=== PATIENT | male | born 1960 | race Caucasian/White ===

== ENCOUNTER 2017-01-03 02:59 | Inpatient (IN) | payer OTHER ==
[2017-01-03] VITALS (10 sets, daily range): BP systolic 114–167; BP diastolic 68–94; PULSE 87–114; RESP 16–18; TEMP 97.8–98.4; O2SAT 95–99
[~2017-01-03] VITALS: Ht 182.9 cm; Wt 70.0 kg
[2017-01-03] MEDS ORDERED: HYDR25TA5 PO (03:13)
[2017-01-03] MEDS ORDERED: LISI-515 PO (03:13)
[2017-01-03] MEDS ORDERED: PRED5TAB PO (03:13)
[2017-01-03] MEDS ORDERED: MORPHINE SULFATE 4 MG/ML INJ IV PUSH ONE (03:45)
[2017-01-03] MEDS ORDERED: ONDANSETRON HCL 4 MG/2 ML VIAL IV PUSH ONE (03:45)
[2017-01-03] MEDS ORDERED: AMPICILLIN-SULBACTAM INJ 3 GM in SODIUM CHLORIDE 0.9% INJ 100 ML IV ONE (03:45)
[2017-01-03] MEDS ORDERED: SODIUM CHLOR 0.9% 1000 ML INJ 1,000 ML IV ONE (03:45)
--- NOTE | 2017-01-03 03:46 | PD ---
HPI Chief Complaint: Fall Time Seen by Provider: 03:33 Travel History International Travel<30 days: No Contact w/Intl Traveler<30days: No Traveled to known affect area: No History of Present Illness HPI The patient is a 56-year-old male who presents emergency department via EMS after a fall. The patient was placed under a [place] act in the field by police after the patient was noted to be intoxicated and fell down. The patient does admit to drinking beers earlier tonight, is unable to quantify the amount of alcohol he consumed. The patient states he fell forward landing on his face and his shoulders bilaterally, does complain of mild headache and facial pain. He denies any loss of consciousness. The patient states his last tetanus shot was 3 years ago. He denies any neck pain, does have a history of chronic back pain. He denies any difficulty using the upper or lower extremities. The patient's symptoms are moderate, exacerbated after falling, and there are no current alleviating factors. PFSH Past Medical History Arthritis: Yes Diminished Hearing: No Hypertension: Yes Musculoskeletal: Yes (CHRONIC BACK PAIN) Influenza Vaccination: No Past Surgical History Other Surgery: Yes (LLE, HERNIA REPAIR) Social History Alcohol Use: Yes (DAILY) Tobacco Use: Yes (1/2 PPD) Substance Use: Yes (MARIJUIANA) Allergies-Medications (Allergen,Severity, Reaction): Coded Allergies: No Known Allergies (Unverified , 01/03/17) Reported Meds & Prescriptions Reported Meds & Active Scripts Active Reported Prednisone 5 Mg Tab 5 Mg PO DAILY Hydrochlorothiazide 25 Mg Tab 25 Mg PO DAILY Lisinopril 20 Mg Tab 20 Mg PO DAILY Review of Systems Except as stated in HPI: all other systems reviewed are Neg Eyes: No: Blurred Vision HENT: Positive: Headaches, Other (as noted in history of present illness), No : Neck Pain Cardiovascular: No: Chest Pain or Discomfort, Syncope Respiratory: No: Shortness of Breath Gastrointestinal: No: Nausea, Vomiting, Abdominal Pain Musculoskeletal: Positive: Other (multiple abrasions) Skin: Positive Other (multiple abrasions) Neurologic: Positive: Headache Psychiatric: Positive: Substance Abuse (alcohol consumption tonight) Physical Exam Narrative GENERAL: Awake, alert, 56-year-old male who appears his stated age and is in no acute respiratory distress. SKIN: Focused skin assessment warm/dry. Patient has abrasions with lacerations of the nasal bridge, the upper lip, the shoulders bilaterally, and the upper extremities bilaterally. HEAD: Facial trauma noted with multiple abrasions and lacerations to the nose as well as the upper lip.. EYES: Pupils equal and round. Pupils are 3 mm bilateral and reactive. EOMs are intact. Patient is able to see fingers at a distance of 2 feet without difficulty. ENT: No nasal bleeding or discharge. Breath smells of alcohol. NECK: Trachea midline. No JVD. Cervical collar in place, no tenderness over the midline of the cervical vertebrae. CARDIOVASCULAR: Regular rate and rhythm. No murmur appreciated. RESPIRATORY: No accessory muscle use. Clear to auscultation. Breath sounds equal bilaterally. GASTROINTESTINAL: Abdomen soft, non-tender, nondistended. MUSCULOSKELETAL: No obvious deformities. No clubbing. No cyanosis. No edema. Moves all 4 extremities without difficulty. Full range of motion of the upper extremities. NEUROLOGICAL: Awake and alert. No obvious cranial nerve deficits. Motor grossly within normal limits. Normal speech. Alert and oriented to person, place, month, year, and driver operator. Back: No tenderness over the thoracic or lumbar vertebrae. PSYCHIATRIC: Appropriate mood and affect; insight and judgment normal. Data Data Last Documented VS Vital Signs Date Time Temp Pulse Resp B/P Pulse Ox O2 Delivery O2 Flow Rate FiO2 01/03/17 04:10 114 18 126/73 98 Room Air 01/03/17 03:[address] Cerv Spine W/O Contrast (01/03/17 ) Ct Brain W/O Iv Contrast(Rout) (01/03/17 ) Ct Facial Bones W/O Iv Cont (01/03/17 ) Basic Metabolic Panel (Bmp) (01/03/17 03:38) Alcohol (Ethanol) (01/03/17 03:38) Morphine Inj (Morphine Inj) (01/03/17 03:45) Ondansetron Inj (Zofran Inj) (01/03/17 03:45) Sodium Chlor 0.9% 1000 Ml Inj (Ns 1000 M (01/03/17 03:45) Ampicillin-Sulbactam Inj (Unasyn Inj) (01/03/17 03:45) Lidocaine 1% Inj (Xylocaine 1% Inj) (01/03/17 05:00) Complete Blood Count With Diff (01/03/17 04:48) Chest, Single Ap (01/03/17 ) Wrist, Limited (Ap&Lat) (01/03/17 ) Admit Order (Ed Use Only) (01/03/17 04:51) [place] J Collar (01/03/17 ) Consult Neurosurgery (01/03/17 ) Brace [place] Collar (01/03/17 ) Collar [place] (01/03/17 ) Labs Laboratory Tests Test 01/03/17 01/03/17 03:45 04:54 Sodium Level 138 MEQ/L Potassium Level 3.0 MEQ/L Chloride Level 102 MEQ/L Carbon Dioxide Level 22.4 MEQ/L Anion Gap 14 MEQ/L Blood Urea Nitrogen 19 MG/DL Creatinine 1.38 MG/DL Estimat Glomerular Filtration 53 ML/MIN Rate Random Glucose 155 MG/DL Calcium Level 8.9 MG/DL Ethyl Alcohol Level 264 MG/DL White Blood Count 12.5 TH/MM3 Red Blood Count 4.82 MIL/MM3 Hemoglobin 16.9 GM/DL Hematocrit 47.0 % Mean Corpuscular Volume 97.4 FL Mean Corpuscular Hemoglobin 35.0 PG Mean Corpuscular Hemoglobin 35.9 % Concent Red Cell Distribution Width 15.1 % Platelet Count 232 TH/MM3 Mean Platelet Volume 10.4 FL Neutrophils (%) (Auto) 88.4 % Lymphocytes (%) (Auto) 6.6 % Monocytes (%) (Auto) 4.6 % Eosinophils (%) (Auto) 0.0 % Basophils (%) (Auto) 0.4 % Neutrophils # (Auto) 11.0 TH/MM3 Lymphocytes # (Auto) 0.8 TH/MM3 Monocytes # (Auto) 0.6 TH/MM3 Eosinophils # (Auto) 0.0 TH/MM3 Basophils # (Auto) 0.0 TH/MM3 CBC Comment DIFF FINAL Differential Comment MDM Medical Decision Making Medical Screen Exam Complete: Yes Emergency Medical Condition: Yes Medical Record Reviewed: Yes Interpretation(s) Laboratory Tests Test 01/03/17 03:45 Sodium Level 138 MEQ/L Potassium Level 3.0 MEQ/L Chloride Level 102 MEQ/L Carbon Dioxide Level 22.4 MEQ/L Anion Gap 14 MEQ/L Blood Urea Nitrogen 19 MG/DL Creatinine 1.38 MG/DL Estimat Glomerular Filtration 53 ML/MIN Rate Random Glucose 155 MG/DL Calcium Level 8.9 MG/DL Ethyl Alcohol Level 264 MG/DL Last Impressions Head CT 01/03/17 0000 Signed Impressions: Service Date/Time: Tuesday, January 03, 2017 04:00 - CONCLUSION: 1. Minimally displaced nasal bone fractures. 2. No acute intracranial abnormality is identified. Anupam Mendez MD CT of the cervical spine reveals a nondisplaced fracture through the C5 lamina. There is degenerative disc disease at C5-C6. CT of the facial bones reveals minimally displaced nasal bone fracture with surrounding soft tissue swelling. Right orbital floor fracture. Chest x-rays unremarkable Left wrist x-rays unremarkable Differential Diagnosis Differential diagnosis includes mechanical fall, alcohol intoxication, closed head injury, intracranial hemorrhage, cervical fracture, facial fracture, laceration, contusion, abrasion, hematoma. Narrative Course IV was established, labs are drawn and sent, and the patient was placed on cardiac telemetry monitoring and continuous pulse oximetry monitoring. CT of the brain, facial bones, and cervical spine were ordered. The patient states his last tetanus shot was 3 years ago, therefore, the tetanus shot was not updated. The patient received morphine, Zofran, IV fluids, and Unasyn. CT the brain is unremarkable. CT the cervical spine reveals a nondisplaced fracture through the C5 lamina. CT of the facial bones reveals a right infraorbital wall fracture with herniation of contents. The patient's EOMs are intact. The patient did receive Unasyn. I discussed the patient with the on-call neurosurgeon, Dr. Wells, who agrees with a [facility]. A call was placed to the on-call trauma surgeon for admission. I discussed the patient with Dr. Matos who agrees with admission. The patient's lacerations were repaired by the mid-level provider, please refer to the procedure no. Physician Communication Physician Communication I discussed the patient with the neurosurgeon and the trauma surgeon. The patient will be admitted to the trauma service. Diagnosis Primary Impression: Cervical vertebral fracture Qualified Code: S12.491A - Other closed nondisplaced fracture of fifth cervical vertebra, initial encounter Additional Impressions: Fracture of inferior orbital wall Qualified Code: S02.31XA - Closed fracture of right orbital floor, initial encounter Nasal fracture Qualified Code: S02.2XXB - Open fracture of nasal bone, initial encounter Admitting Information Admitting Physician Requests: Admit Condition: Stable Elvis Dobbs MD Jan 03, 2017 03:46
[2017-01-03 04:28] LABS: BICARBONATE 22.4 MEQ/L (21.0-32.0)
--- NOTE | 2017-01-03 04:35 | RADRPT ---
EXAM DATE/TIME: 01/03/2017 04:00 [facility] COMPARISON: No previous studies available for comparison. INDICATIONS : Trauma. Fall. RADIATION DOSE: 56.35 CTDIvol (mGy) MEDICAL HISTORY : Hypertension. SURGICAL HISTORY : Inguinal hernia repair. ENCOUNTER: Initial ACUITY: 1 day PAIN SCALE: 5/10 LOCATION: cranial TECHNIQUE: Multiple contiguous axial images were obtained of the head. Using automated exposure control and adj ustment of the mA and/or kV according to patient size, radiation dose was kept as low as reasonably a chievable to obtain optimal diagnostic quality images. DICOM format image data is available electro nically for review and comparison. FINDINGS: CEREBRUM: The ventricles are normal. No evidence of midline shift, mass lesion, hemorrhage or acute infarction . No extra-axial fluid collections are seen. POSTERIOR FOSSA: The cerebellum and brainstem are intact. The 4th ventricle is midline. The cerebellopontine angle i s unremarkable. EXTRACRANIAL: There are minimally displaced nasal bone fractures. SKULL: The calvaria is intact. No evidence of skull fracture. CONCLUSION: 1. Minimally displaced nasal bone fractures. 2. No acute intracranial abnormality is identified. Anupam Mendez MD on January 03, 2017 at 4:32 Board Certified Radiologist. This report was verified electronically.
--- NOTE | 2017-01-03 04:39 | RADRPT ---
EXAM DATE/TIME: 01/03/2017 03:58 [facility] COMPARISON: No previous studies available for comparison. INDICATIONS : Trauma. Fall. RADIATION DOSE: 22.75 CTDIvol (mGy) MEDICAL HISTORY : Hypertension. SURGICAL HISTORY : Inguinal hernia repair. ENCOUNTER: Initial ACUITY: 1 day PAIN SCALE: 5/10 LOCATION: neck TECHNIQUE: Volumetric scanning of the cervical spine was performed. Multiplanar reconstructions in the sagittal, coronal and oblique axial planes were performed. Using automated exposure control and adjustment o f the mA and/or kV according to patient size, radiation dose was kept as low as reasonably achievable to obtain optimal diagnostic quality images. DICOM format image data is available electronically f or review and comparison. FINDINGS: There is normal sagittal spine alignment of the cervical spine. No anterolisthesis or retrolisthesis is present. The atlantoaxial relationship is within normal limits. There is no prevertebral soft tiss ue swelling present. There is a nondisplaced fracture through the lamina of C5 there is degenerative disc disease at C5-C6 with facet arthrosis at multiple levels. The visualized portions of the posterior fossa, paraspinous soft tissues, and upper lung zones demons trate no acute abnormality. CONCLUSION: 1. There is a nondisplaced fracture through the C5 lamina. 2. There is degenerative disc disease at C5-C6. Anupam Mendez MD on January 03, 2017 at 4:33 Board Certified Radiologist. This report was verified electronically.
--- NOTE | 2017-01-03 04:42 | RADRPT ---
EXAM DATE/TIME: 01/03/2017 04:01 [facility] COMPARISON: No previous studies available for comparison. INDICATIONS : Trauma. Fall. RADIATION DOSE: 26.35 CTDIvol (mGy) MEDICAL HISTORY : Hypertension. SURGICAL HISTORY : Inguinal hernia repair. ENCOUNTER: Initial ACUITY: 1 day PAIN SCORE: 5/10 LOCATION: facial TECHNIQUE: Volumetric scanning of the facial bones was performed. Using automated exposure control and adjustme nt of the mA and/or kV according to patient size, radiation dose was kept as low as reasonably achiev able to obtain optimal diagnostic quality images. DICOM format image data is available electronicall y for review and comparison. FINDINGS: ORBITS: There is a right orbital floor fracture with herniation of fat into the defect. The retroconal struc tures have a normal configuration. No radiopaque foreign bodies are seen. The lenses are normally lo cated. NASAL BONE: There are minimally displaced nasal bone fractures bilaterally with surrounding soft tissue swelling. ZYGOMATIC ARCHES: Symmetric without evidence of fracture. SINUSES: There are secretions within the right maxillary sinus. NASAL CAVITY: The nasal septum is intact and midline. The lacrimal ducts are intact. SOFT TISSUES: No radiopaque foreign bodies seen. There is nasal soft tissue swelling. INTRACRANIAL: No acute intracranial abnormality is seen. OTHER: The mandible and pterygoid plates are intact. CONCLUSION: 1. Minimally displaced nasal bone fractures with surrounding soft tissue swelling. 2. Right orbital floor fracture. Anupam Mendez MD on January 03, 2017 at 4:37 Board Certified Radiologist. This report was verified electronically.
[2017-01-03] MEDS ORDERED: LIDOCAINE HCL 1% 30 ML VIAL INFIL ONE (05:00)
[2017-01-03 05:15] LABS: BASOPHIL % 0.4 % (0.0-2.0); HEMO FLAGS DIFF FINAL; LYMPH % 6.6 % (9.0-44.0); LYMPHOCYTE # 0.8 TH/MM3 (1.0-4.8); MEAN CELL VOLUME 97.4 FL (80.0-100.0); MEAN CORPUSCULAR HGB CONC 35.9 % (32.0-36.0); MONO % 4.6 % (0.0-8.0); NEUT % 88.4 % (16.0-70.0); PLATELET COUNT 232 TH/MM3 (150-450); RED BLOOD COUNT 4.82 MIL/MM3 (4.50-5.90); RED CELL DISTRIBUTION WIDTH 15.1 % (11.6-17.2); WHITE BLOOD COUNT 12.5 TH/MM3 (4.0-11.0)
[2017-01-03] MEDS ORDERED: SODIUM CHLORIDE 0.9% FLUSH 10 ML FLUSH IVF PRN (05:30)
[2017-01-03] MEDS ORDERED: NS + KCL 20 MEQ INJ 1,000 ML IV SCH (05:30)
[2017-01-03] MEDS ORDERED: ONDANSETRON HCL 4 MG/2 ML VIAL IV PRN ×2 (05:30→07:45)
[2017-01-03] MEDS ORDERED: ACETAMINOPHEN 650 MG SUPP RECTAL PRN (05:30)
[2017-01-03] MEDS ORDERED: ACETAMINOPHEN 325 MG TAB PO PRN (05:30)
--- NOTE | 2017-01-03 05:46 | RADRPT ---
EXAM DATE/TIME: 01/03/2017 05:00 [facility] COMPARISON: No previous studies available for comparison. INDICATIONS : Shortness of breath. MEDICAL HISTORY : Hypertension. SURGICAL HISTORY : Inguinal hernia repair. ENCOUNTER: Initial ACUITY: 1 day PAIN SCORE: 2/10 LOCATION: Bilateral chest FINDINGS: Portable AP view of the chest demonstrates a normal-sized cardiac silhouette. No effusion, consolidat ion, or pneumothorax is visualized. The bones and soft tissues demonstrate no acute abnormality. Ther e is symmetric biapical scar. CONCLUSION: No acute cardiopulmonary abnormality is identified. Anupam Mendez MD on January 03, 2017 at 5:44 Board Certified Radiologist. This report was verified electronically.
--- NOTE | 2017-01-03 05:47 | PD ---
Physical Exam Narrative I was asked by Dr. Dobbs to help his medical student repair the patient's facial lacerations. Please see his documentation for full H&P. Data Data Last Documented VS Vital Signs Date Time Temp Pulse Resp B/P Pulse Ox O2 Delivery O2 Flow Rate FiO2 01/03/17 04:10 114 18 126/73 98 Room Air 01/03/17 03:[address] Cerv Spine W/O Contrast (01/03/17 ) Ct Brain W/O Iv Contrast(Rout) (01/03/17 ) Ct Facial Bones W/O Iv Cont (01/03/17 ) Basic Metabolic Panel (Bmp) (01/03/17 03:38) Alcohol (Ethanol) (01/03/17 03:38) Morphine Inj (Morphine Inj) (01/03/17 03:45) Ondansetron Inj (Zofran Inj) (01/03/17 03:45) Sodium Chlor 0.9% 1000 Ml Inj (Ns 1000 M (01/03/17 03:45) Ampicillin-Sulbactam Inj (Unasyn Inj) (01/03/17 03:45) Lidocaine 1% Inj (Xylocaine 1% Inj) (01/03/17 05:00) Complete Blood Count With Diff (01/03/17 04:48) Chest, Single Ap (01/03/17 ) Wrist, Limited (Ap&Lat) (01/03/17 ) Admit Order (Ed Use Only) (01/03/17 04:51) [place] J Collar (01/03/17 ) Consult Neurosurgery (01/03/17 ) Brace [place] Collar (01/03/17 ) Collar [place] (01/03/17 ) Vital Signs (Adult) Q4H (01/03/17 05:28) Diet Npo (01/04/17 Breakfast) Activity Bed Rest (01/03/17 05:28) ^ Saline Lock (01/03/17 05:28) Resp Oxygen Shakir C Titrat 1-4 L (01/03/17 ) Notify Dr: Other (01/03/17 05:28) Ondansetron Inj (Zofran Inj) (01/03/17 05:30) Acetaminophen (Tylenol) (01/03/17 05:30) Acetaminophen Supp (Tylenol Supp) (01/03/17 05:30) Sodium Chloride 0.9% Flush (Ns Flush) (01/03/17 09:00) Sodium Chloride 0.9% Flush (Ns Flush) (01/03/17 05:30) Consult Oral, Facial Surgery (01/03/17 05:28) Ampicillin-Sulbactam Inj (Unasyn Inj) (01/03/17 06:00) Morphine Inj (Morphine Inj) (01/03/17 05:30) Ns + Kcl 20 Meq Inj (Ns + Kcl 20 Meq Inj (01/03/17 05:30) (Hub Use Only)Inp Phy Cons/Ref (01/03/17 ) Labs Laboratory Tests Test 01/03/17 01/03/17 03:45 04:54 Sodium Level 138 MEQ/L Potassium Level 3.0 MEQ/L Chloride Level 102 MEQ/L Carbon Dioxide Level 22.4 MEQ/L Anion Gap 14 MEQ/L Blood Urea Nitrogen 19 MG/DL Creatinine 1.38 MG/DL Estimat Glomerular Filtration 53 ML/MIN Rate Random Glucose 155 MG/DL Calcium Level 8.9 MG/DL Ethyl Alcohol Level 264 MG/DL White Blood Count 12.5 TH/MM3 Red Blood Count 4.82 MIL/MM3 Hemoglobin 16.9 GM/DL Hematocrit 47.0 % Mean Corpuscular Volume 97.4 FL Mean Corpuscular Hemoglobin 35.0 PG Mean Corpuscular Hemoglobin 35.9 % Concent Red Cell Distribution Width 15.1 % Platelet Count 232 TH/MM3 Mean Platelet Volume 10.4 FL Neutrophils (%) (Auto) 88.4 % Lymphocytes (%) (Auto) 6.6 % Monocytes (%) (Auto) 4.6 % Eosinophils (%) (Auto) 0.0 % Basophils (%) (Auto) 0.4 % Neutrophils # (Auto) 11.0 TH/MM3 Lymphocytes # (Auto) 0.8 TH/MM3 Monocytes # (Auto) 0.6 TH/MM3 Eosinophils # (Auto) 0.0 TH/MM3 Basophils # (Auto) 0.0 TH/MM3 CBC Comment DIFF FINAL Differential Comment MDM Supervised Visit with RENU: No Procedures Procedure Narrative LACERATION REPAIR LOCATION: Right upper lip laceration with skin avulsion LENGTH: Approximately 1 cm x 1 cm NUMBER OF STITCHES/WESTON: 3 simple interrupted REPAIR: Verbal consent was obtained. The area of the laceration was cleaned and prepped. The laceration was infiltrated with lidocaine without epi. The wound was copiously irrigated and explored without evidence of foreign body, bony involvement, ligament injury, tendon injury, or neurovascular injury. The wound was closed using 5-0 Vicryl. This was a single layer repair. The patient was advised to keep the affected area as clean and dry as possible using soap and water. There were no complications. Patient tolerated the procedure well. LACERATION REPAIR LOCATION: Nasal bridge with skin avulsion LENGTH: Approximately 1 cm NUMBER OF STITCHES/WESTON: 2 simple interrupted REPAIR: Verbal consent was obtained. The area of the laceration was cleaned and prepped. The laceration was infiltrated with lidocaine without epi. The wound was copiously irrigated and explored without evidence of foreign body, bony involvement, ligament injury, tendon injury, or neurovascular injury. The wound was closed using 5-0 Vicryl. This was a single layer repair. The patient was advised to keep the affected area as clean and dry as possible using soap and water. There were no complications. Patient tolerated the procedure well. LACERATION REPAIR LOCATION: Tip of the nose laceration with skin avulsion and irregular shaped LENGTH: Approximately 1.5 cm in total length NUMBER OF STITCHES/WESTON: 3 simple interrupted REPAIR: Verbal consent was obtained. The area of the laceration was cleaned and prepped. The laceration was infiltrated with lidocaine without epi. The wound was copiously irrigated and explored without evidence of foreign body, bony involvement, ligament injury, tendon injury, or neurovascular injury. The wound was closed using 5-0 Vicryl. This was a single layer repair. The patient was advised to keep the affected area as clean and dry as possible using soap and water. There were no complications. Patient tolerated the procedure well. Laceration repairs were completed by fourth-year medical student Carly under my supervision. Diagnosis Primary Impression: Cervical vertebral fracture Qualified Code: S12.491A - Other closed nondisplaced fracture of fifth cervical vertebra, initial encounter Additional Impressions: Fracture of inferior orbital wall Qualified Code: S02.31XA - Closed fracture of right orbital floor, initial encounter Nasal fracture Qualified Code: S02.2XXB - Open fracture of nasal bone, initial encounter Condition: Stable Luis Duggan Jan 03, 2017 05:47
[2017-01-03] MEDS: AMPICILLIN-SULBACTAM INJ 1,500 MG in SODIUM CHLORIDE 0.9% INJ 100 ML IV SCH ×3 (05:48→22:27)
--- NOTE | 2017-01-03 05:51 | RADRPT ---
EXAM DATE/TIME: 01/03/2017 05:01 [facility] COMPARISON: No previous studies available for comparison. INDICATIONS : Left wrist pain post fall. MEDICAL HISTORY : Hypertension SURGICAL HISTORY : Inguinal hernia repair. ENCOUNTER: Initial ACUITY: 1 day PAIN SCORE: 5/10 LOCATION: Left upper extremity FINDINGS: Three views of the left wrist demonstrate no fracture or dislocation. Mineralization is within normal limits. There is no significant arthropathy. No soft tissue abnormality or radiopaque foreign body i s identified. There is a shortened fifth metacarpal. CONCLUSION: No acute left wrist abnormality is identified. 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 Anupam Mendez MD on January 03, 2017 at 5:48 Board Certified Radiologist. This report was verified electronically.
[2017-01-03] MEDS ORDERED: ENALAPRILAT 1.25 MG/ML VIAL IV PRN (07:45)
[2017-01-03] MEDS ORDERED: MAGNESIUM HYDROXIDE SUSP 30 ML CUP PO PRN (07:45)
[2017-01-03] MEDS: PANTOPRAZOLE SODIUM 40 MG VIAL IVP SCH (08:28)
[2017-01-03] MEDS: SODIUM CHLOR 0.9% 1000 ML INJ 1,000 ML IV SCH ×2 (08:28→18:00)
[2017-01-03] MEDS: DOCUSATE SODIUM 100 MG CAP PO SCH ×2 (09:08→21:00)
[2017-01-03] MEDS: SODIUM CHLORIDE 0.9% FLUSH 10 ML FLUSH IV FLUSH SCH ×2 (09:08→22:28)
[2017-01-03] MEDS: MULTIVITAMIN INJ 10 ML, THIAMINE INJ 100 MG, FOLIC ACID INJ 1 MG in SODIUM CHLORID 0.9%... IV SCH (09:08)
[2017-01-03] MEDS ORDERED: predniSONE 5 MG TAB PO SCH (11:45)
--- NOTE | 2017-01-03 11:59 | HHI.PR ---
Subjective Subjective Notes PTD: 0 Lying in bed. Distress noted. Denies numbness Objective Vitals/I&O Vital Signs Date Time Temp Pulse Resp B/P Pulse Ox O2 Delivery O2 Flow Rate FiO2 01/03/17 09:47 97.8 96 17 133/77 99 Room Air 01/03/17 06:15 21 Labs Laboratory Tests Test 01/03/17 01/03/17 03:45 04:54 Sodium Level 138 Potassium Level 3.0 Chloride Level 102 Carbon Dioxide Level 22.4 Anion Gap 14 Blood Urea Nitrogen 19 Creatinine 1.38 Estimat Glomerular Filtration 53 Rate Random Glucose 155 Calcium Level 8.9 Ethyl Alcohol Level 264 White Blood Count 12.5 Red Blood Count 4.82 Hemoglobin 16.9 Hematocrit 47.0 Mean Corpuscular Volume 97.4 Mean Corpuscular Hemoglobin 35.0 Mean Corpuscular Hemoglobin 35.9 Concent Red Cell Distribution Width 15.1 Platelet Count 232 Mean Platelet Volume 10.4 Neutrophils (%) (Auto) 88.4 Lymphocytes (%) (Auto) 6.6 Monocytes (%) (Auto) 4.6 Eosinophils (%) (Auto) 0.0 Basophils (%) (Auto) 0.4 Neutrophils # (Auto) 11.0 Lymphocytes # (Auto) 0.8 Monocytes # (Auto) 0.6 Eosinophils # (Auto) 0.0 Basophils # (Auto) 0.0 CBC Comment DIFF FINAL Differential Comment Radiology Last Impressions Wrist X-Ray 01/03/17 0000 Signed Impressions: Service Date/Time: Tuesday, January 03, 2017 05:01 - CONCLUSION: No acute left wrist abnormality is identified. 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 Anupam Mendez MD Maxillofacial CT 01/03/17 0000 Signed Impressions: Service Date/Time: Tuesday, January 03, 2017 04:01 - CONCLUSION: 1. Minimally displaced nasal bone fractures with surrounding soft tissue swelling. 2. Right orbital floor fracture. Anupam Mendez MD Head CT 01/03/17 0000 Signed Impressions: Service Date/Time: Tuesday, January 03, 2017 04:00 - CONCLUSION: 1. Minimally displaced nasal bone fractures. 2. No acute intracranial abnormality is identified. Anupam Mendez MD Chest X-Ray 01/03/17 0000 Signed Impressions: Service Date/Time: Tuesday, January 03, 2017 05:00 - CONCLUSION: No acute cardiopulmonary abnormality is identified. Anupam Mendez MD Cervical Spine CT 01/03/17 0000 Signed Impressions: Service Date/Time: Tuesday, January 03, 2017 03:58 - CONCLUSION: 1. There is a nondisplaced fracture through the C5 lamina. 2. There is degenerative disc disease at C5-C6. Anupam Mendez MD Narrative Exam GENERAL: This is a 56-year-old male lying in bed. No distress noted. SKIN: Warm and dry. Sutures noted to nose and lip. Scattered abrasions to bilateral shoulders, bilateral arms, and bilateral hands. HEAD: Atraumatic. Normocephalic. EYES: PERRLA ENT: No nasal bleeding or discharge. Mucous membranes pink and moist. NECK: Trachea midline. No JVD. CARDIOVASCULAR: Regular rate and rhythm. RESPIRATORY: No accessory muscle use. Lungs are clear to auscultation. Breath sounds equal bilaterally. No distress or dyspnea. GASTROINTESTINAL: BS + x 4 quads. Abdomen soft, non-tender, nondistended. MUSCULOSKELETAL: Extremities without cyanosis, or edema. + peripheral pulses x 4 extremities. Warm with good capillary refill and sensation. MAEW. NEUROLOGICAL: Awake and alert. Normal speech and pattern. A/P Problem List: (1) Nasal fracture (2) Cervical vertebral fracture (3) Fracture of inferior orbital wall Assessment and Plan GALENA: This is a 56-year-old male that sustained a mechanical fall. He states he tripped and fell. He was placed under a Marchman act by police. + EtOH= 264. He fell face forward. INJURIES: RIGHT orbit floor fx Nasal bone fx (no-op) Nose lac (bridge - 2 sutures; tip 3 sutures) Lip lac ( 3 sutures) C5 fx Procedures: Consults: Neurosurgery. OMFS. Diet: Increased to Regular diet. Tolerating po diet. Encourage good po intake with each meal. Pulmonary: Encourage good pulmonary toileting. IS at bedside and pt encouraged to use. Rationale for use explained to patient, and verbalized understanding. PAIN Management: Tylenol po. Morphine IV Activity: BR. PT and OT ordered GI prophylaxis: Protonix IV Bowel regimen: Colace and MOM. LBM: 0 DVT prophylaxis: Mechanical VTE with SCDs. Chemical management TBD DC Planning: Case management consulted for assistance with final discharge disposition. Emotional support provided to patient and family at bedside and plan of care discussed. Discussed with RN at bedside. Patient is hemodynamically stable and being managed on the med/surg floor. The trauma team will round each day, and evaluate plan of care on a daily basis. RIGHT orbit floor fx Nasal bone fx (no-op) OMFS consulted and assisted in management and care Nose lac (bridge - 2 sutures; tip 3 sutures) Lip lac ( 3 sutures) Nonoperative at this time Pain management Wash wounds gently with soap and water. Pat dry. Follow up with OMFS outpatient as needed C5 fx Neurosurgeon consulted to assist in management of care Awaiting plan Angelina J collar in place Pain management PT and OT ordered Hypertension Resume home medications - Prinivil, hydrochlorothiazide Vital signs every 4 hours EtOH intoxication IV fluids MVI IV 3 days CIWA protocol if needed. Seizure precautions Monitor for signs of withdrawal The exam, history, and the medical decision-making described in the above note were completed with the assistance of the mid-level provider. I reviewed and agree with the findings presented. I attest that I had a [id number] encounter with the patient on the same day, and personally performed and documented my assessment and findings in the medical record. Problem Qualifiers (1) Nasal fracture: (2) Cervical vertebral fracture: (3) Fracture of inferior orbital wall: Florencia Zhong Jan 03, 2017 11:59 Tay Matos MD Feb 25, 2017 17:32
[2017-01-03] MEDS: HYDROCHLOROTHIAZIDE 25 MG TAB PO SCH (14:22)
[2017-01-03] MEDS: LISINOPRIL 20 MG TAB PO SCH (14:22)
[2017-01-03] MEDS: MORPHINE SULFATE 4 MG/ML INJ IV PUSH PRN ×2 (18:45→22:28)
--- NOTE | 2017-01-03 22:09 | PD.CONS ---
History of Present Illness Service Neurosurgery Consult Requested By General surgery trauma service Reason for Consult Nondisplaced C5 spinous process fracture Primary Care Physician No Primary Care Physician Diagnoses: History of Present Illness 56-year-old male brought to the emergency room by the please under a Marchman act early on the morning 01/03/17 after falling and striking his face while intoxicated. No definite loss of consciousness. No seizure activity reported. Patient has history of chronic low back pain. Review of Systems Constitutional: DENIES: Fever Eyes: DENIES: Blurred vision, Diplopia Ears, nose, mouth, throat: DENIES: Hearing loss, Vertigo Respiratory: DENIES: Cough Cardiovascular: DENIES: Chest pain, Palpitations Gastrointestinal: DENIES: Abdominal pain, Nausea Musculoskeletal: COMPLAINS OF: Joint pain, Muscle aches Neurologic: COMPLAINS OF: Headache, DENIES: Abnormal gait Psychiatric: DENIES: Confusion Past Family Social History Allergies: Coded Allergies: Fish Containing Products (Unverified Allergy, Intermediate, Nausea/ Vomiting, 02/07/17) Past Medical History Hypertension Chronic low back pain Past Surgical History No major surgeries Reported Medications Reported Meds & Active Scripts Active Reported Prednisone 5 Mg Tab 5 Mg PO DAILY Hydrochlorothiazide 25 Mg Tab 25 Mg PO DAILY Lisinopril 20 Mg Tab 20 Mg PO DAILY Social History Smokes one half pack cigarettes a day Drinks alcohol daily Occasional marijuana Physical Exam Vital Signs Vital Signs Date Time Temp Pulse Resp B/P Pulse Ox O2 Delivery O2 Flow Rate FiO2 01/03/17 21:13 98.0 93 16 146/72 95 01/03/17 17:52 98.2 89 17 167/94 97 01/03/17 16:56 84 16 114/74 99 01/03/17 13:00 87 16 118/74 99 Room Air 01/03/17 13:00 Room Air 01/03/17 09:47 97.8 96 17 133/77 99 Room Air 01/03/17 07:30 100 17 98 Room Air 01/03/17 07:30 97.8 102 17 135/71 99 Room Air 01/03/17 06:15 21 01/03/17 06:00 103 18 133/72 99 Room Air 01/03/17 04:10 114 18 126/73 98 Room Air 01/03/17 03:10 98.4 106 18 119/70 99 Room Air 01/03/17 03:02 98.0 109 18 114/68 97 Physical Exam GENERAL: This is a well-nourished, well-developed patient, in no apparent distress. SKIN: No rashes, ecchymoses or lesions. Cool and dry. HEAD: Atraumatic. Normocephalic. No temporal or scalp tenderness. EYES: Pupils equal round and reactive. Extraocular motions intact. No scleral icterus. No injection or drainage. ENT: Positive facial contusions and lacerations NECK: Trachea midline. No JVD or lymphadenopathy. Supple, nontender, no meningeal signs. CARDIOVASCULAR: Regular rate and rhythm without murmurs, gallops, or rubs. RESPIRATORY: Clear to auscultation. Breath sounds equal bilaterally. No wheezes , rales, or rhonchi. GASTROINTESTINAL: Abdomen soft, non-tender, nondistended. No hepato-splenomegaly , or palpable masses. No guarding. MUSCULOSKELETAL: Extremities without clubbing, cyanosis, or edema. No joint tenderness, effusion, or edema noted. No calf tenderness. Negative Homans sign bilaterally. NEUROLOGICAL: Awake and alert. Cranial nerves II through XII intact. Motor and sensory grossly within normal limits. Five out of 5 muscle strength in all muscle groups. Normal speech. Laboratory Laboratory Tests Test 01/03/17 01/03/17 03:45 04:54 Sodium Level 138 Potassium Level 3.0 Chloride Level 102 Carbon Dioxide Level 22.4 Anion Gap 14 Blood Urea Nitrogen 19 Creatinine 1.38 Estimat Glomerular Filtration 53 Rate Random Glucose 155 Calcium Level 8.9 Ethyl Alcohol Level 264 White Blood Count 12.5 Red Blood Count 4.82 Hemoglobin 16.9 Hematocrit 47.0 Mean Corpuscular Volume 97.4 Mean Corpuscular Hemoglobin 35.0 Mean Corpuscular Hemoglobin 35.9 Concent Red Cell Distribution Width 15.1 Platelet Count 232 Mean Platelet Volume 10.4 Neutrophils (%) (Auto) 88.4 Lymphocytes (%) (Auto) 6.6 Monocytes (%) (Auto) 4.6 Eosinophils (%) (Auto) 0.0 Basophils (%) (Auto) 0.4 Neutrophils # (Auto) 11.0 Lymphocytes # (Auto) 0.8 Monocytes # (Auto) 0.6 Eosinophils # (Auto) 0.0 Basophils # (Auto) 0.0 CBC Comment DIFF FINAL Differential Comment Result Diagram: 01/03/17 0454 01/03/17 0345 Imaging 01/03 CT scan head and cervical spine images reviewed by the undersigned. Agree with findings as noted below: Wrist X-Ray 01/03/17 0000 Signed Impressions: Service Date/Time: Tuesday, January 03, 2017 05:01 - CONCLUSION: No acute left wrist abnormality is identified. 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 Anupam Mendez MD Maxillofacial CT 01/03/17 0000 Signed Impressions: Service Date/Time: Tuesday, January 03, 2017 04:01 - CONCLUSION: 1. Minimally displaced nasal bone fractures with surrounding soft tissue swelling. 2. Right orbital floor fracture. Anupam Mendez MD Head CT 01/03/17 0000 Signed Impressions: Service Date/Time: Tuesday, January 03, 2017 04:00 - CONCLUSION: 1. Minimally displaced nasal bone fractures. 2. No acute intracranial abnormality is identified. Anupam Mendez MD Chest X-Ray 01/03/17 0000 Signed Impressions: Service Date/Time: Tuesday, January 03, 2017 05:00 - CONCLUSION: No acute cardiopulmonary abnormality is identified. Anupam Mendez MD Cervical Spine CT 01/03/17 0000 Signed Impressions: Service Date/Time: Tuesday, January 03, 2017 03:58 - CONCLUSION: 1. There is a nondisplaced fracture through the C5 lamina. 2. There is degenerative disc disease at C5-C6. Anupam Mendez MD Assessment and Plan Assessment and Plan Impression: 1. Nondisplaced C5 lamina fracture. Plan: Continue cervical collar May mobilize out of bed as tolerated No surgical intervention anticipated. Plan follow-up cervical spine flexion extension x-ray in 7-10 days for neck pain improved. This may be performed as an outpatient Cruz Wells MD Jan 03, 2017 22:09
[2017-01-04] VITALS (7 sets, daily range): BP systolic 147–172; BP diastolic 74–98; PULSE 83–93; RESP 16; TEMP 98–99; O2SAT 95–98
[2017-01-04] MEDS: AMPICILLIN-SULBACTAM INJ 1,500 MG in SODIUM CHLORIDE 0.9% INJ 100 ML IV SCH ×3 (01:03→11:56)
[2017-01-04] MEDS: MORPHINE SULFATE 4 MG/ML INJ IV PUSH PRN ×3 (02:49→10:13)
[2017-01-04] MEDS: SODIUM CHLORIDE 0.9% FLUSH 10 ML FLUSH IV FLUSH PRN ×2 (02:50→05:40)
[2017-01-04] MEDS: SODIUM CHLOR 0.9% 1000 ML INJ 1,000 ML IV SCH (05:39)
[2017-01-04 07:14] LABS: AUTOMATED NEUTROPHIL # 9.3 TH/MM3 (1.8-7.7); BASOPHIL % 0.4 % (0.0-2.0); EOSINOPHIL # 0.3 TH/MM3 (0-0.4); EOSINOPHIL % 2.6 % (0.0-4.0); HEMATOCRIT 47.5 % (39.0-51.0); HEMO FLAGS DIFF FINAL; LYMPH % 7.6 % (9.0-44.0); LYMPHOCYTE # 0.9 TH/MM3 (1.0-4.8); MEAN CELL VOLUME 97.6 FL (80.0-100.0); MEAN CORPUSCULAR HEMOGLOBIN 33.8 PG (27.0-34.0); MEAN CORPUSCULAR HGB CONC 34.6 % (32.0-36.0); MONO % 8.7 % (0.0-8.0); NEUT % 80.7 % (16.0-70.0); PLATELET COUNT 163 TH/MM3 (150-450); RED BLOOD COUNT 4.87 MIL/MM3 (4.50-5.90); RED CELL DISTRIBUTION WIDTH 14.7 % (11.6-17.2); WHITE BLOOD COUNT 11.5 TH/MM3 (4.0-11.0)
[2017-01-04 08:24] LABS: BICARBONATE 22.1 MEQ/L (21.0-32.0)
[2017-01-04 08:40] LABS: POTASSIUM 2.7 MEQ/L (3.5-5.1)
[2017-01-04] MEDS ORDERED: DOCU1CAP39 PO (09:08)
[2017-01-04] MEDS ORDERED: MAGN400S PO (09:08)
[2017-01-04] MEDS: LISINOPRIL 20 MG TAB PO SCH (10:10)
[2017-01-04] MEDS: SODIUM CHLORIDE 0.9% FLUSH 10 ML FLUSH IV FLUSH SCH (10:11)
[2017-01-04] MEDS: DOCUSATE SODIUM 100 MG CAP PO SCH (10:11)
[2017-01-04] MEDS: HYDROCHLOROTHIAZIDE 25 MG TAB PO SCH (10:11)
[2017-01-04] MEDS: MULTIVITAMIN INJ 10 ML, THIAMINE INJ 100 MG, FOLIC ACID INJ 1 MG in SODIUM CHLORID 0.9%... IV SCH (10:12)
[2017-01-04] MEDS: PANTOPRAZOLE SODIUM 40 MG VIAL IVP SCH (10:19)
[2017-01-04] MEDS ORDERED: POTASSIUM CHLORIDE 10 MEQ CONTROLLED RELEASE TAB PO ONE (12:45)
[2017-01-04] MEDS ORDERED: POTASSIUM CHLORIDE 20 MEQ CONTROLLED RELEASE TAB PO ONE (15:00)
--- NOTE | 2017-01-04 15:18 | HHI.NSPN ---
(Bud French) History Chief Complaint: Facial pain (Bud French) Interval History 01/03: 56-year-old male brought to the emergency room by the please under a Marchman act early on the morning 01/03/17 after falling and striking his face while intoxicated. No definite loss of consciousness. No seizure activity reported. Patient has history of chronic low back pain. 01/04: Patient is awake & alert when seen this afternoon. He states that he is doing "okay." He complains of pain to the face where he has multiple midface abrasions and swelling. He states his neck feels good. (Bud French) System Review Comments CONSTITUTIONAL: The patient denies any fever or chills. INTEGUMENTARY: The patient reports multiple abrasions to the face and left arm and hand. HEENT: The patient complains of facial pain, swelling and abrasions. He also lost his upper dentures in the fall. NECK: The patient denies any neck pain. CARDIOVASCULAR: The patient denies any chest pain, palpitations or irregular heartbeat. RESPIRATORY: The patient denies any shortness of breath or productive cough. GASTROINTESTINAL: The patient denies any abdominal pain, nausea, vomiting or incontinence of stool. GENITOURINARY: The patient denies any incontinence of urine. MUSCULOSKELETAL: The patient states he has some pain and different sensation to the abrasions of the left hand. NEUROLOGICAL: The patient has facial pain but doesn't endorse a headache. He denies any dizziness, numbness or tingling. (Bdu French) Exam Results Vital Signs Date Time Temp Pulse Resp B/P Pulse Ox O2 Delivery O2 Flow Rate FiO2 01/04/17 12:00 98.1 86 16 149/78 95 01/04/17 08:42 21 01/03/17 13:00 Room Air Intake and Output 01/03/17 01/03/17 01/04/17 08:00 16:00 00:00 Output Total 800 ml Balance -800 ml (Bud French) Physical Examination GENERAL: The patient is awake & alert w/o any apparent distress. Affect essentially normal. SKIN: The patient has multiple facial abrasions & swelling. He is also noted to have multiple left upper extremity abrasions as well. HEENT: Facial contusions w/dried blood to both nares. MMM & pink. No otorrhea. NECK: Piatt J cervical collar in place. NTTP of midline cervical spine. No JVD, trachea midline. CARDIOVASCULAR: S1S2 w/RRR w/o M/G/R, radial & pedal pulses 2+ bilaterally, cap refill < 2 sec, no pedal edema. RESPIRATORY: CTAB w/o W/R/R, equal excursion, nonlaboured, on RA. GASTROINTESTINAL: Abdomen soft, nontender, positive bowel sounds. MUSCULOSKELETAL: [place] w/o difficulty. Multiple abrasions to left upper extremity. Slight tremor at times noted to BUE. NEUROLOGICAL: AAOx3. Speech clear & appropriate. Follows simple commands w/o difficulty. Sensation intact to light touch to all extremities. Slight tremor at times noted to BUE. Motor strength 5/5 to all flexion & extension muscle groups. (Bud French) Lab, Micro, Other Results Allergies Coded Allergies Type Severity Reaction Last Updated Verified Seafood Allergy Intermediate Nausea/Vomiting 01/03/17 Yes Recent Impressions Wrist X-Ray 01/03/17 0000 Signed Impressions: Service Date/Time: Tuesday, January 03, 2017 05:01 - CONCLUSION: No acute left wrist abnormality is identified. 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 Anupam Mendez MD Maxillofacial CT 01/03/17 0000 Signed Impressions: Service Date/Time: Tuesday, January 03, 2017 04:01 - CONCLUSION: 1. Minimally displaced nasal bone fractures with surrounding soft tissue swelling. 2. Right orbital floor fracture. Anupam Mendez MD Head CT 01/03/17 0000 Signed Impressions: Service Date/Time: Tuesday, January 03, 2017 04:00 - CONCLUSION: 1. Minimally displaced nasal bone fractures. 2. No acute intracranial abnormality is identified. Anupam Mendez MD Chest X-Ray 01/03/17 0000 Signed Impressions: Service Date/Time: Tuesday, January 03, 2017 05:00 - CONCLUSION: No acute cardiopulmonary abnormality is identified. Anupam Mendez MD Cervical Spine CT 01/03/17 0000 Signed Impressions: Service Date/Time: Tuesday, January 03, 2017 03:58 - CONCLUSION: 1. There is a nondisplaced fracture through the C5 lamina. 2. There is degenerative disc disease at C5-C6. Anupam Mendez MD 06:00 18:00 06:00 18:00 06:00 18:00 Output Total 800 ml 850 ml Balance -800 ml -850 ml Output Urine Total 800 ml 850 ml # Voids 1 # Bowel Movements 0 0 Laboratory Tests Test 01/03/17 01/03/17 01/04/17 03:45 04:54 06:37 Sodium Level 138 MEQ/L 138 MEQ/L Potassium Level 3.0 MEQ/L 2.7 MEQ/L Chloride Level 102 MEQ/L 105 MEQ/L Carbon Dioxide Level 22.4 MEQ/L 22.1 MEQ/L Anion Gap 14 MEQ/L 11 MEQ/L Blood Urea Nitrogen 19 MG/DL 10 MG/DL Creatinine 1.38 MG/DL 0.70 MG/DL Estimat Glomerular Filtration 53 ML/MIN 117 ML/MIN Rate Random Glucose 155 MG/DL 118 MG/DL Calcium Level 8.9 MG/DL 8.3 MG/DL Ethyl Alcohol Level 264 MG/DL White Blood Count 12.5 TH/MM3 11.5 TH/MM3 Red Blood Count 4.82 MIL/MM3 4.87 MIL/MM3 Hemoglobin 16.9 GM/DL 16.5 GM/DL Hematocrit 47.0 % 47.5 % Mean Corpuscular Volume 97.4 FL 97.6 FL Mean Corpuscular Hemoglobin 35.0 PG 33.8 PG Mean Corpuscular Hemoglobin 35.9 % 34.6 % Concent Red Cell Distribution Width 15.1 % 14.7 % Platelet Count 232 TH/MM3 163 TH/MM3 Mean Platelet Volume 10.4 FL 9.9 FL Neutrophils (%) (Auto) 88.4 % 80.7 % Lymphocytes (%) (Auto) 6.6 % 7.6 % Monocytes (%) (Auto) 4.6 % 8.7 % Eosinophils (%) (Auto) 0.0 % 2.6 % Basophils (%) (Auto) 0.4 % 0.4 % Neutrophils # (Auto) 11.0 TH/MM3 9.3 TH/MM3 Lymphocytes # (Auto) 0.8 TH/MM3 0.9 TH/MM3 Monocytes # (Auto) 0.6 TH/MM3 1.0 TH/MM3 Eosinophils # (Auto) 0.0 TH/MM3 0.3 TH/MM3 Basophils # (Auto) 0.0 TH/MM3 0.0 TH/MM3 CBC Comment DIFF FINAL DIFF FINAL Differential Comment Vital Signs Date Time Temp Pulse Resp B/P Pulse Ox O2 Delivery O2 Flow Rate FiO2 01/04/17 12:00 98.1 86 16 149/78 95 01/04/17 10:18 18 01/04/17 08:42 96 21 01/04/17 08:00 98.0 93 16 172/98 95 01/04/17 04:58 98.5 90 16 161/82 95 01/04/17 00:58 99.0 83 16 154/74 96 01/04/17 00:37 21 01/03/17 21:13 98.0 93 16 146/72 95 01/03/17 17:52 98.2 89 17 167/94 97 01/03/17 16:56 84 16 114/74 99 01/03/17 13:00 87 16 118/74 99 Room Air 01/03/17 13:00 Room Air 01/03/17 09:47 97.8 96 17 133/77 99 Room Air 01/03/17 07:30 100 17 98 Room Air 01/03/17 07:30 97.8 102 17 135/71 99 Room Air 01/03/17 06:15 21 01/03/17 06:00 103 18 133/72 99 Room Air 01/03/17 04:10 114 18 126/73 98 Room Air 01/03/17 03:10 98.4 106 18 119/70 99 Room Air 01/03/17 03:02 98.0 109 18 114/68 97 (Bud French) Medical Decision Making Impression and Plan Impression: 1. Nondisplaced C5 lamina fracture. Plan: No indication for NSGY intervention. Cervical collar at all times. Mobilise patient w/assistance as needed. Patient may be discharged from NSGY's perspective and follow up as an outpatient. NSGY will therefore sign off at this time. If we may be of further assistance please consult the service as needed. Thank you for allowing us to participate in your patient's care. Will have the patient follow up in 7-10 days w/cervical spine flexion & extension views as an outpatient. (Bud French) Impression and Plan The exam, history, and the medical decision-making described in the above note were completed with the assistance of the mid-level provider. I reviewed and agree with the findings presented. I attest that I had a [id number] encounter with the patient on the same day, and personally performed and documented my assessment and findings in the medical record. Patient was stable neurologic exam Able to mobilize out of bed with brace on Pain adequately controlled Continue therapy Conservative treatment for fracture Stable for discharge from neurosurgical standpoint (Cruz Wells MD) Bud French Jan 04, 2017 15:18 Cruz Wells MD Mar 19, 2017 09:13
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
[2017-02-07] MEDS ORDERED: TRAM50TA PO (11:55)
[2017-02-07] MEDS ORDERED: DICL50TA3 PO (11:55)
[2017-02-07] MEDS ORDERED: CYCL1TAB29 PO (11:55)
== END 2017-01-04 18:28 | disposition home or self-care (01) | DRG 552 ==
LOC: NEPC 02:59 → NEDA 04:54 → N05A 17:36
PROVIDERS: ADMIT Surgery; ATTEND Surgery
PROC: 0HQ1XZZ Repair Face Skin, External Approach (ICD-10-PCS; principal; 2017-01-03)
DX: S12.491A Other nondisplaced fracture of fifth cervical vertebra, initial encounter for closed fracture (principal); S02.31XA Fracture of orbital floor, right side, initial encounter for closed fracture; I10 Essential (primary) hypertension; S02.2XXB Fracture of nasal bones, initial encounter for open fracture; W01.0XXA Fall on same level from slipping, tripping and stumbling without subsequent striking against object, initial encounter; S01.511A Laceration without foreign body of lip, initial encounter; G89.29 Other chronic pain; M54.5 Low back pain; F17.210 Nicotine dependence, cigarettes, uncomplicated; F10.120 Alcohol abuse with intoxication, uncomplicated; Y90.8 Blood alcohol level of 240 mg/100 ml or more; E87.6 Hypokalemia; M19.90 Unspecified osteoarthritis, unspecified site
CPT/HCPCS: 12013; 70450; 70486; 71010; 72125; 73100; 80048; 80307; 85025; 94150; 96365; 96375; C9113; J0295; J2270; J2405; J3411; J3480; J7030; J7040; L0150; L0172

== ENCOUNTER 2017-02-18 08:46 | Emergency (ER) | payer OTHER ==
[~2017-02-18] VITALS: Ht 182.9 cm; Wt 70.0 kg
[~2017-02-18 08:46] MED LIST: CYCL1TAB29 PO; DICL50TA3 PO; LISI-515 PO; TRAM50TA PO
[2017-02-18 08:50] VITALS: BP 124/80; PULSE 112; RESP 20; TEMP 97.5; O2SAT 100
[2017-02-18] MEDS ORDERED: AMOX500C PO (09:02)
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
[2017-02-18 09:10] VITALS: PULSE 92
== END 2017-02-18 09:16 | disposition home or self-care (01) ==
LOC: NEPK 08:46
DX: K08.89 Other specified disorders of teeth and supporting structures (principal); F17.200 Nicotine dependence, unspecified, uncomplicated
CPT/HCPCS: 99283